=== PATIENT | female | born 1975 | race Hispanic/Latino ===

== ENCOUNTER 2018-08-04 21:53 | Emergency (ER) | payer OTHER ==
[2018-08-04] MEDS ORDERED: PREDNISONE 20 MG TABLET ONE (22:28)
[2018-08-04] MEDS ORDERED: IPRATROPIUM/ALBUTEROL SULFATE 3 ML SOLUTION IH ONE (22:49)
== END 2018-08-04 23:11 | disposition home or self-care (01) ==
LOC: EDH 21:53
DX: J45.21 Mild intermittent asthma with (acute) exacerbation (principal); I10 Essential (primary) hypertension; E11.9 Type 2 diabetes mellitus without complications; Z79.84 Long term (current) use of oral hypoglycemic drugs; Z88.0 Allergy status to penicillin
CPT/HCPCS: 93005; 94640